=== PATIENT | female | born 1995 | race Caucasian/White ===

== ENCOUNTER 2016-08-09 11:15 | Inpatient (IN) | payer OTHER ==
[~2016-08-09] VITALS: Ht 165.1 cm; Wt 71.2 kg
[2016-08-09] MEDS ORDERED: PRENATAL VITAMINS PO (14:27)
--- NOTE | 2016-08-09 18:24 | Progress Note ---
Subjective General Patient states that she is doing well. Has good control of pain post epidural. 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 VE: 6cm/90%/-2 FHT: 130 + accels, mod variability, no decels. Arom--> clear fluids a/p: IUP 38 + week gestation in labor active, arom clear fluids, epidural working well. FHT reassuring. expectant management
--- NOTE | 2016-08-09 18:24 | Progress Note ---
Subjective General Patient states that she is doing well. Has good control of pain post epidural. 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 VE: 6cm/90%/-2 FHT: 130 + accels, mod variability, no decels. Arom--> clear fluids a/p: IUP 38 + week gestation in labor active, arom clear fluids, epidural working well. FHT reassuring. expectant management
--- NOTE | 2016-08-09 19:29 | Progress Note ---
Subjective General Doing well no concerns. FHT- 130 + accels no decels VE 0/100%/7cm a/p: IUP 38+ weeks gestation; labor.Expectant management.
--- NOTE | 2016-08-09 19:29 | Progress Note ---
Subjective General Doing well no concerns. FHT- 130 + accels no decels VE 0/100%/7cm a/p: IUP 38+ weeks gestation; labor.Expectant management.
--- NOTE | 2016-08-09 23:37 | Progress Note ---
Subjective General - 38 1/7 week gestation, vaginal after spontaneous labor. No nuchal cord, no lacerations. Full note dictated.
--- NOTE | 2016-08-09 23:37 | Progress Note ---
Subjective General - 38 1/7 week gestation, vaginal after spontaneous labor. No nuchal cord, no lacerations. Full note dictated.
--- NOTE | 2016-08-09 23:59 | DELIVERY SUMMARY ---
DELIVERY DATE: 08/09/2016 ATTENDING PHYSICIAN/PROVIDER: Jam Cunningham MD PREOPERATIVE DIAGNOSIS: 1. Intrauterine POSTOPERATIVE DIAGNOSIS: 1. Intrauterine plus viable female infant, normal spontaneous vaginal delivery PROCEDURE PERFORMED: 1. Normal spontaneous vaginal delivery SUMMARY: The patient was admitted to labor and delivery with spontaneous labor at 38 and 1/7 weeks' gestation. She continued to progress normally throughout labor, had an epidural for pain control and she progressed to complete and then pushed until she delivered in occiput anterior baby with no nuchal cord. Baby was bulb suctioned on perineum and then delivered up to mom where cord was clamped and cut and then the baby had a good spontaneous cry and did well, stayed with mom. The placenta was delivered spontaneously intact. There were no lacerations, no nuchal cords and both mom and baby were doing well after delivery.
[2016-08-10] VITALS (9 sets, daily range): BP systolic 107–122; BP diastolic 55–64
--- NOTE | 2016-08-10 07:21 | Progress Note ---
Subjective General No concerns post per patient or nursing.Still "a little numb" on legs. Physical Exam Vital Signs / I&Os I&O 08/10 0000 08/09 1600 08/09 0800 Intake Total 500 Output Total Balance 500 General Appearance Alert, Cooperative Lungs Clear to auscultation, Normal air movement Cardiovascular Regular rate and rhythm Abdomen Soft, No tenderness Extremities No edema LAB Results Laboratory Tests 08/09 1330 Hematology WBC (4.5 - 11.5 K/uL) 18.6 RBC (4.00 - 5.20 M/uL) 4.19 Hgb (12.0 - 16.0 gm/dL) 12.1 Hct (36.0 - 46.0 %) 36.1 MCV (80 - 100 fL) 86 MCH (26 - 34 pg) 29 RDW (11.6 - 14.8 %) 13.3 Neut % (Auto) (50 - 75 %) 80.3 Lymph % (Auto) (25 - 40 %) 14.8 [place] % (Auto) (3 - 14 %) 4.6 Eos % (Auto) (0 - 4 %) 0.1 Baso % (Auto) (0 - 2 %) 0.2 Plt Count, EDTA (150 - 400 K/uL) 283 PUBS MCHC (31 - 37 g/dL) 34 Assessment and Plan Problem List 1. state Plan Doing well post and routine care.
--- NOTE | 2016-08-11 07:27 | Progress Note ---
Subjective General Doing well post no concerns. Sore body diffuse, non localized. Breast feeding. Physical Exam Vital Signs / I&Os Vital Signs Date Time Temp Pulse Resp B/P Pulse O2 O2 Flow FiO2 Ox Delivery Rate 08/10 2330 98.8 80 16 116/62 08/10 2013 98.4 80 20 119/62 08/10 1621 Room Air 08/10 1620 98.8 86 18 107/60 08/10 1300 98.8 08/10 0830 Room Air 08/10 0820 98.4 94 18 112/61 I&O 08/11 0000 08/10 1600 08/10 0800 Intake Total 120 650 Output Total 1 0 Balance 119 650 General Appearance Alert, Cooperative Lungs Normal exam Cardiovascular Regular rate and rhythm, No murmurs, gallops, rubs Abdomen Soft, No tenderness Extremities No edema Assessment and Plan Problem List 1. state Plan d/c home today. F/u in 6 weeks.
--- NOTE | 2016-08-11 07:29 | Provider's Discharge Care Plan ---
Problem, Goal, Plan Problem List 1. state Instructions: Follow up as directed, OK simba pack
--- NOTE | 2016-08-11 07:29 | Provider's Discharge Care Plan ---
Problem, Goal, Plan Problem List 1. state Instructions: Follow up as directed, OK simba pack
[2016-08-11 07:45] VITALS: BP 126/78
== END 2016-08-11 09:30 | disposition home or self-care (01) | DRG 775 ==
LOC: OBC SRH 11:15 → OB SRH 11:22 → OBC SRH 14:00 → OB SRH 14:00
PROVIDERS: ADMIT Family Medicine
PROC: 10E0XZZ Delivery of Products of Conception, External Approach (ICD-10-PCS; principal; 2016-08-09)
DX: O80 Encounter for full-term uncomplicated delivery (principal); Z37.0 Single live birth; Z3A.38 38 weeks gestation of pregnancy
CPT/HCPCS: 40011; 83411; 83501; 95059